=== PATIENT | male | born 1980 | race Caucasian/White ===

== ENCOUNTER 2024-03-01 08:22 | Day surgery (SDC) | payer BC ==
[2024-02-25 11:27] VITALS: BP 149/88
[~2024-03-01] VITALS: Ht 172.7 cm; Wt 87.3 kg
[~2024-03-01 08:22] MED LIST: IBLOOD GLUCOSE TEST STRIP 1 EA TEST VI PRN; IBUPROFEN400 MG PO; IBUPROFEN600 MG PO; LACTATED RINGER'S 1,000 ML IV SCH; LIDOCAINE HCL 1% 5 ML SDV INJ ONE; TESTOSTERO30 MG/1.5 TD; ZESTRIL10 MG PO
[2024-03-01] MEDS ORDERED: SEVOFLURANE 250 ML BTL INH ONE (08:30)
[2024-03-01 08:33] VITALS: BP 110/71
[2024-03-01] MEDS ORDERED: LIDOCAINE HCL 2% 5 ML SDV ONE (09:36)
[2024-03-01] MEDS ORDERED: ondansetron HCL 4 MG/2 ML VIAL ONE (09:36)
[2024-03-01] MEDS ORDERED: DEXAMETHASONE SOD PHOS 4 MG/ML VIAL ONE (09:36)
[2024-03-01] MEDS ORDERED: ACETAMINOPHEN 1,000 MG/100 ML VIAL ONE (09:36)
[2024-03-01] MEDS ORDERED: SUGAMMADEX SODIUM 200 MG/2 ML ML ONE (09:36)
[2024-03-01] MEDS ORDERED: ROCURONIUM BROMIDE 50 MG/5 ML SYR ONE (09:36)
[2024-03-01] MEDS ORDERED: propofoL 200 MG/20 ML VIAL ONE (09:36)
[2024-03-01] MEDS ORDERED: fentaNYL citrate 100 MCG/2 ML VIAL ONE ×2 (09:37→10:06)
[2024-03-01] MEDS ORDERED: MIDAZOLAM HCL 2 MG/2 ML VIAL ONE (09:37)
[2024-03-01] MEDS ORDERED: LABETALOL HCL 20 MG/4 ML VIAL ONE (10:24)
[2024-03-01] MEDS ORDERED: NALOXONE HCL 0.4 MG SYR IV PRN (10:30)
[2024-03-01] MEDS ORDERED: PROCHLORPERAZINE EDISYLATE 10 MG/2 ML VIAL IV PRN (10:30)
[2024-03-01] MEDS ORDERED: HYDROmorphone HCL 1 MG/ML SYR IV PRN (10:30)
[2024-03-01] MEDS ORDERED: ondansetron HCL 4 MG/2 ML VIAL IV PRN (10:30)
[2024-03-01] MEDS ORDERED: IBLOOD GLUCOSE TEST STRIP 1 EA TEST VI PRN (10:30)
[2024-03-01] MEDS ORDERED: droPERidol 5 MG/2 ML VIAL IV PRN (10:30)
[2024-03-01] MEDS ORDERED: MIDAZOLAM HCL 2 MG/2 ML VIAL IV PRN (10:30)
[2024-03-01] MEDS ORDERED: fentaNYL citrate 50 MCG/ML SDV IV PRN (10:30)
--- NOTE | 2024-03-01 11:24 | NUR ---
03/01/24 1124 Kinjal Shelby 1116-PATIENT ARRIVED TO PACU ON 6L MASK RR EVEN NONAROUSABLE RN DOING JAW THRUST TO MAINTAIN OPEN AIRWAY ORAL AIRWAY IN PLACE. PURPLE/RED DOWN TO PATIENTS NIPPLE LINE. FACE RED. SR HR 70'S 1122-PURPLE ON CHEST HAS GONE AWAY PATIENT DOES REMAIN RED TO SHOULDERS. IVF INFUSING. RN CONTINUING TO DO JAW THRUST ORAL AIRWAY IN PLACE.
[2024-03-01] MEDS ORDERED: ACETA/HYDROCODONE 325/7.5 15 ML BTL PO PRN (11:45)
[2024-03-01 12:08] VITALS: BP 159/109
--- NOTE | 2024-03-01 12:10 | NUR ---
IN PT ROOM FOR PAIN ASSESSMENT. PT REPORTS PAIN REMAINS AT 9/10 AFTER ORAL PAIN REGULATORY AFFAIRS ANALYST AND STATES THROAT IS VERY PAINFUL. POPSICLE PROVIDED TO PROVIDE PAIN RELIEF.
--- NOTE | 2024-03-01 12:13 | NUR ---
1210: PATIENT BACK IN DAY SURGERY ROOM FROM PACU. RATES PAIN 9/10. RESTLESS IN BED. VS CHECKED. IV SITE WNL. PATIENT DENIES FEELING BLEEDING/DRAINAGE IN BACK OF THROAT. SCDs ON. MEDICATED FOR PAIN WITH LORTAB ELIXIR. GIVEN APPLESAUCE TO EAT. CALL LIGHT WITHIN REACH.
--- NOTE | 2024-03-01 12:30 | NUR ---
PT STATES NO PAIN RELIEF FROM POPSICLE AT THIS TIME. ATTEMPTED TO CALL [facility] OFF[facility] X4 W/NO ANSWER. CONTACTED [facility] AT 1255 AND RECEIVED VERBAL ORDER FOR 5MG OF IV MORPHINE. PT UPDATED, CALL LIGHT WITHIN REACH. REMAINS IN ROOM W/PT AT THIS TIME.
--- NOTE | 2024-03-01 12:38 | OR ---
[facility] [address], [place] [address] Signed DATE OF OPERATION: 03/01/2024 SURGEON: Arnulfo Persaud MD PREOPERATIVE DIAGNOSES: 1. Obstructive sleep apnea with tonsillar hypertrophy. 2. Chronic tonsillitis. POSTOPERATIVE DIAGNOSES: 1. Obstructive sleep apnea with tonsillar hypertrophy. 2. Chronic tonsillitis. PROCEDURES: 1. Tonsillectomy. 2. Palatopharyngoplasty. ANESTHESIA: General orotracheal, INTERPRETATIVE DANCER, Silvano. PREOPERATIVE HISTORY: Mr. Anguiano is a 43-year-old male with obstructive sleep apnea, having some difficulty with CPAP. He has chronic tonsillitis, tonsil lithiasis. He is taken to the operating for the above-mentioned procedures. OPERATIVE PROCEDURE AND FINDINGS: After informed consent, the patient was taken to the operating room, placed in the supine position where general orotracheal anesthesia was induced. The patient and procedure were verified. The patient was repositioned. McIvor mouth gag placed into suspension. Headlight exam of the pharynx showed a long prominent soft palate and uvula. Tonsils were very retracted. cryptic. Left tonsil was grasped with a tenaculum, retracted medially and removed from its fossa with mucosal sparing incisions with Coblation. Same procedure on the right tonsil. Tonsils were sent to pathology. The palatopharyngoplasty was then performed. The length of excision was determined by palpation of the soft palate against the posterior pharyngeal wall. Basically, the palate incision extended from the superior tonsillar incisions across the midline portion. The posterior tonsillar pillar was excised, contiguous with the palatal excision. Coblation was used for the palate removal and it was sent to pathology along with the tonsils for gross examination. Hemostasis was obtained with Coblation. Field was dry after the procedure. Closure was with 4-0 interrupted Vicryl approximating posterior to anterior tonsillar pillar on the left, extending up to the palate Electronically Signed By: ARNULFO PERSAUD MD 03/01/24 1238 PATIENT NAME: BHARTI ANGUIANO OPERATIVE REPORT DATE OF : 82 REPORT #: [id number] PHYSICIAN: ARNULFO PERSAUD MD PCP: OLIVIA SANTOYO PA-C REPORT IS CONFIDENTIAL AND NOT TO BE RELEASED WITHOUT AUTHORIZATION [address] [address] Signed repositioning and closing posterior palatal mucosa with anterior palatal mucosa extending over to the midline on the right. An excellent cosmetic closure was obtained. Hemostasis was verified. The pharynx was suctioned clear of blood and secretions. Mouth gag was removed. The patient was awakened, extubated, transported to recovery room in good condition. No complications. BLOOD LOSS: Minimal. SPECIMEN: To pathology. DRAINS: No drains. Arnulfo Persaud MD /MODL /[id number] Copies: ~ Electronically Signed By: ARNULFO PERSAUD MD 03/01/24 1238 PATIENT NAME: ANGUIANOBHARTI SORIN OPERATIVE REPORT DATE OF : 82 REPORT #: [id number] PHYSICIAN: ARNULFO PERSAUD MD PCP: OLIVIA SANTOYO PA-C REPORT IS CONFIDENTIAL AND NOT TO BE RELEASED WITHOUT AUTHORIZATION
[2024-03-01] MEDS ORDERED: MORPHINE SULFATE 10 MG/ML VIAL IV ONE (13:00)
--- NOTE | 2024-03-01 13:10 | NUR ---
[facility] CALLED FOR VERBAL ORDER FOR "MAGIC MOUTHWASH", VERBAL ORDER RECEIVED. PHARMACY CALLED FOR MEDICATION.
[2024-03-01] MEDS ORDERED: MAALOX/DIPHENHYDRAMINE/LIDOCAINE 1:1:1 BY VOLUME SUSP PO ONE (13:15)
--- NOTE | 2024-03-01 13:15 | NUR ---
PT SLIGHTLY GARGLES MAGIC MOUTHWASH AND SWALLOWS WITHOUT DIFFICULTY. IV MORPHINE GIVEN (SEE EMAR). PT STATES PAIN HAS ALREADY IMPROVED TO 7/10 AT THIS TIME. CPOX IN PLACE, CALL LIGHT WITHIN REACH, PT SIGNIFICANT OTHER AT BEDSIDE. PT REPORTS NO FURTHER NEEDS OR QUESTIONS AT THIS TIME.
[2024-03-01 13:41] VITALS: BP 148/92
--- NOTE | 2024-03-01 13:45 | NUR ---
IN PT ROOM FOR PAIN ASSESSMENT. PT STATES PAIN HAS IMPROVED TO 5/10 AND STATES HE IS READY TO GO HOME AT THIS TIME D/T TOLERABLE LEVEL OF PAIN. PT GETTING DRESSED W/ ASSISTANCE. CALL LIGHT WITHIN REACH.
--- NOTE | 2024-03-01 13:50 | NUR ---
[facility] CALLED D/T PT REQUEST FOR HOME PRESCRIPTION FOR MAGIC MOUTHWASH TO ASSIST W/PAIN. [facility] SWAN[facility] STATES HE WILL CALL PT PHARMACY FOR PRESCRIPTION ORDER FOR THAT, OR SOMETHING SIMILAR. PT UPDATED AND AGREEABLE W/PLAN OF CARE.
--- NOTE | 2024-03-01 14:00 | NUR ---
IN PT ROOM FOR VS, ASSESSMENT, AND DC EDUCATION. PT AND PT SIGNIFICANT OTHER STATE VERBAL UNDERSTANDING TO DC EDUCATION AT THIS TIME AND NO OTHER QUESTIONS. IV DC'ED, WNL. PT OFF OF UNIT VIA WC TO PASSENGER SIDE OF VEHICLE. ALL BELONGINGS IN PT POSSESSION AT THIS TIME. PT AND PT SIGNIFICANT OTHER STATE NO FURTHER QUESTIONS OR NEEDS AT THIS TIME. FRESH ICE WATER PROVIDED.
[2024-03-02] MEDS ORDERED: Magic Mouth Wash PO (04:17)
--- NOTE | 2024-03-03 20:41 | PATH ---
[facility] [address] [place], [place] [address] Signed SPECIMEN(S): A TONSILS, UVULA, SOFT PALATE SPECIMEN SOURCE: A. TONSILS, UVULA, SOFT PALATE CLINICAL HISTORY: Chronic tonsillitis, sleep apnea, UP3 FINAL PATHOLOGIC DIAGNOSIS: Right and left tonsils, uvula, soft palate, bilateral tonsillectomy with uvula resection: - Right and left tonsils with chronic tonsillitis and reactive lymphoid hyperplasia. - Crypts of both tonsils contain focal acute inflammation. - Crypts of both tonsils contain colonies of microorganisms morphologically consistent with Actinomyces species. - Negative for atypia and malignancy. - Uvula with lamina propria edema and vascular congestion towards the tip. - Negative for inflammation, atypia, and malignancy. SDL MICROSCOPIC EXAMINATION: Histologic sections of all submitted blocks are examined by light microscopy. These findings, together with the gross examination, support the pathologic diagnosis. GROSS DESCRIPTION: The specimen, labeled and designated "Dale Anguiano, bilateral tonsils, uvula, soft palate," is received in formalin and consists of two palatine tonsils and triangular shaped fragment of pink-willoughby soft tissue consistent with the uvula. The first tonsil measures 3.8 x 2.2 x 1.3 cm (margin inked blue) and the second tonsil measures 3.7 x 2.1 x 1.4 cm. Both tonsils have a cerebriform outer surface and are sectioned to reveal pink-willoughby focally hemorrhagic crypts. No grossly identifiable lesions seen. The uvula measures 3.0 x 2.9 x 0.9 cm and the margin is inked green. The uvula is sectioned to reveal pink-willoughby fibrous to edematous cut surfaces. Bulldozer Press Operator sections are submitted. Cassette Summary: (A1) policy services representative sections of tonsils (A2) policy services representative section of the uvula PATIENT NAME: BHARTI ANGUIANO PATHOLOGY DATE OF : 82 REPORT #: [id number] PHYSICIAN: LARY EPPS PCP: OLIVIA SANTOYO PA-C REPORT IS CONFIDENTIAL AND NOT TO BE RELEASED WITHOUT AUTHORIZATION [facility] [address] [place] [id number] Signed JM (under the direct supervision of a pathologist) The Gross Description was prepared using a voice recognition system. The report was reviewed for accuracy; however, sound-alike word errors, addition and/or deletions may occur. If there are any questions about this report, please contact Client Services. ADDITIONAL NOTES: Immunohistochemical and/or in situ hybridization studies if performed in this case included appropriate positive controls that reacted as expected. This test was developed and its performance characteristics determined by [facility]. It has not been cleared or approved by the U.S. Food and Drug Administration. The FDA has determined that such clearance or approval is not necessary. This test is used for clinical purposes. It should not be regarded as investigational or for research. [facility] is certified under the Clinical Laboratory Improvement Amendments of 1988 (CLIA) as qualified to perform high complexity clinical laboratory testing. PERFORMING LABORATORY: Technical component was performed by [facility], [address] [place] [id number] (CLIA# [id number]). Professional interpretation was performed by [facility], [address] [place] [id number] (CLIA#: [id number]). Diagnostician: Kay Gonzáles MD Pathologist Electronically Signed 03/03/2024 Copies: ~ PATIENT NAME: BHARTI ANGUIANO PATHOLOGY DATE OF : 82 REPORT #: [id number] PHYSICIAN: LARY EPPS PCP: OLIVIA SANTOYO PA-C REPORT IS CONFIDENTIAL AND NOT TO BE RELEASED WITHOUT AUTHORIZATION
== END 2024-03-01 14:15 | disposition home or self-care (01) ==
LOC: DS 08:22
PROVIDERS: ATTEND Otolaryngology
PROC: 0CBP0ZZ Excision of Tonsils, Open Approach (ICD-10-PCS; principal; 2024-03-01 10:30)
PROC: 0CBPXZZ Excision of Tonsils, External Approach (ICD-10-PCS; 2024-03-01 10:30)
DX: J35.01 Chronic tonsillitis (principal); G47.33 Obstructive sleep apnea (adult) (pediatric); J35.8 Other chronic diseases of tonsils and adenoids
CPT/HCPCS: 00170; J0131; J1100; J2250; J2270; J2405; J2704; J3010; J3490; J7121

== ENCOUNTER 2024-03-01 22:30 | Emergency (ER) | payer BC ==
[~2024-03-01] VITALS: Ht 172.7 cm; Wt 87.0 kg
[~2024-03-01 22:30] MED LIST changes: -IBLOOD GLUCOSE TEST STRIP 1 EA TEST VI PRN; -LACTATED RINGER'S 1,000 ML IV SCH; -LIDOCAINE HCL 1% 5 ML SDV INJ ONE
[2024-03-01] MEDS ORDERED: TRANEXAMIC ACID 1,000 MG/10 ML AMP NEB ONE (23:30)
[2024-03-01] MEDS ORDERED: LACTATED RINGER'S 1,000 ML IV ONE (23:30)
[2024-03-01 23:32] LABS: HEMATOCRIT 46.8 % (35.0-50.0); HEMOGLOBIN 15.3 g/dL (12.0-18.0); MCH 32.2 (27-36); MCHC 32.6 g/dl (30-36); MCV 98.7 fl (81-99); PLATELET COUNT 328 K/uL (140-440); RBC 4.73 M/ul (4.3-5.7); RDW 14.1 (10.5-15.0)
[2024-03-01 23:43] LABS: INR 1.04 (0.80-1.30); PROTIME 13.2 Sec (11.2-14.2)
[2024-03-01 23:45] LABS: PARTIAL THROMBOPLASTIN TIME 24.6 Sec (22.9-41.3)
[2024-03-01 23:46] LABS: BANDS, MANUAL DIFF 3; LYMPHOCYTES, MANUAL DIFF 10; MONOCYTES, MANUAL DIFF 5; NEUTROPHILS, MANUAL DIFF 82
[2024-03-01 23:47] LABS: ALBUMIN 3.8 g/dL (3.4-5.0); ALBUMIN/GLOBULIN RATIO 1.23 (1.1-2.4); ANION GAP 14.1 (7-21); BILIRUBIN, TOTAL 0.6 ng/dL (0.2-1.0); BUN/CREATININE RATIO 23.42 (6.0-28.6); CREATININE, SERUM 1.11 mg/dL (0.70-1.30); POTASSIUM 5.1 mmol/L (3.5-5.1); PROTEIN, TOTAL 6.9 g/dL (6.4-8.2)
[2024-03-02 00:08] LABS: ABO O; ANTIBODY SCREEN NEGATIVE; RH POSITIVE
[2024-03-02] MEDS ORDERED: TRANEXAMIC ACID IN NACL,ISO-OS 1,000 MG/100 ML PIGGYBACK IV ONE (00:15)
[2024-03-02] MEDS ORDERED: TRANEXAMIC ACID 1,000 MG/10 ML AMP NEB ONE (00:15)
[2024-03-02] MEDS ORDERED: ondansetron HCL 4 MG/2 ML VIAL IV ONE (00:30)
[2024-03-02] MEDS ORDERED: FAMOTIDINE 20 MG/ 2 ML VIAL IV ONE (00:30)
[2024-03-02 00:40] LABS: HEMOGLOBIN 13.1 g/dL (12.0-18.0)
[2024-03-02 00:41] LABS: HEMATOCRIT 39.2 % (35.0-50.0)
[2024-03-02] MEDS ORDERED: droPERidol 5 MG/2 ML VIAL IV ONE (01:45)
[2024-03-02] MEDS ORDERED: PANTOPRAZOLE SODIUM 40 MG/10 ML VIAL IV ONE (02:15)
[2024-03-02 02:40] LABS: HEMATOCRIT 37.2 % (35.0-50.0); HEMOGLOBIN 12.2 g/dL (12.0-18.0)
[2024-03-02 02:59] LABS: LACTIC ACID, BLOOD 2.2 mmol/L (0.4-2.0)
[2024-03-02] MEDS ORDERED: CEFTRIAXONE/SODIUM CHLORIDE 2 GM/100 ML PIGGYBACK IV ONE (03:15)
[2024-03-02] MEDS ORDERED: LACTATED RINGER'S 1,000 ML IV ONE (03:15)
[2024-03-02 03:25] LABS: BILIRUBIN, URINE NEGATIVE (negative); BLOOD/HGB, URINE NEGATIVE (Negative); KETONE, URINE TRACE (Negative); LEUK ESTERASE, URINE NEGATIVE (negative); NITRITE, URINE NEGATIVE (negative); PH, URINE 6.5 (5-7)
[2024-03-02] MEDS ORDERED: ONDANSETRON 4 MG HOME.PACK SL ONE (04:00)
[2024-03-02] MEDS ORDERED: Magic Mouth Wash PO ×2 (04:17→04:18)
[2024-03-02 04:43] VITALS: BP 158/93
--- NOTE | 2024-03-03 21:39 | EKG ---
[facility] [address] [facility] [place] [address] Signed Normal sinus rhythm Nonspecific T wave abnormality Abnormal ECG When compared with ECG of 25-FEB-2024 11:36, No significant change was found Confirmed by Raad Montague MD ([id number]) on 03/03/2024 9:39:28 PM Electronically Signed By: RAAD MONTAGUE DO 03/03/24 2139 PATIENT NAME: GRUBERBHARTI LUND Electrocardiogram DATE OF : 82 PHYSICIAN: RAAD MONTAGUE DO REPORT #: [id number] REPORT IS CONFIDENTIAL AND NOT TO BE RELEASED WITHOUT AUTHORIZATION
== END 2024-03-02 04:35 | disposition home or self-care (01) ==
LOC: ED 22:30
PROVIDERS: Internal Medicine
DX: K91.840 Postprocedural hemorrhage of a digestive system organ or structure following a digestive system procedure (principal); I10 Essential (primary) hypertension; Z87.891 Personal history of nicotine dependence; Z79.899 Other long term (current) drug therapy; Z79.890 Hormone replacement therapy
CPT/HCPCS: 36415; 71045; 74177; 80053; 81003; 83605; 83690; 85014; 85018; 85025; 85610; 85730; 86850; 86900; 86901; 87040; 93005; 93010; 96361; 96375; 99284-25; A9270; J0696; J1790; J2405; J2470; J7121; Q9967

== ENCOUNTER 2025-01-26 05:50 | Day surgery (SDC) | payer BC ==
[~2025-01-26] VITALS: Ht 172.7 cm; Wt 87.0 kg
[~2025-01-26 05:50] MED LIST changes: +FISH OIL 500 M1 EAC4 PO; +L-THEANINE200 MG PO; +LACTATED RINGER'S 1,000 ML IV SCH; +Magic Mouth Wash PO
[2025-01-26 06:04] VITALS: BP 140/83
[2025-01-26] MEDS ORDERED: IBLOOD GLUCOSE TEST STRIP 1 EA TEST VI PRN (07:00)
[2025-01-26] MEDS ORDERED: LIDOCAINE HCL 1% 5 ML SDV INJ ONE (07:00)
[2025-01-26] MEDS ORDERED: fentaNYL citrate 100 MCG/2 ML VIAL ONE (07:23)
[2025-01-26] MEDS ORDERED: LIDOCAINE HCL 2% 5 ML SDV ONE (07:23)
[2025-01-26] MEDS ORDERED: MIDAZOLAM HCL 2 MG/2 ML VIAL ONE (07:23)
[2025-01-26] MEDS ORDERED: DEXAMETHASONE SOD PHOS 4 MG/ML VIAL ONE (07:23)
[2025-01-26] MEDS ORDERED: CEFAZOLIN SODIUM 2 GM in SODIUM CHLORIDE 0.9% 100 ML IV SCH (07:25)
[2025-01-26] MEDS ORDERED: SUGAMMADEX SODIUM 200 MG/2 ML ML ONE (08:14)
[2025-01-26] MEDS ORDERED: ROCURONIUM BROMIDE 50 MG/5 ML SYR ONE (08:16)
[2025-01-26] MEDS ORDERED: ACETAMINOPHEN 1,000 MG/100 ML VIAL IV ONE (08:30)
--- NOTE | 2025-01-26 08:34 | NUR ---
01/26/25 0834 Garfield,Marisabel 1600 PT ARRIVED TO PACU ON 6L VIA MASK, RESP EVEN AND UNLABORED WITH ORAL AIRWAY AND 6L VIA MASK IN PLACE. VSS.
[2025-01-26] MEDS ORDERED: NALOXONE HCL 0.4 MG SYR IV PRN (09:00)
[2025-01-26] MEDS ORDERED: HYDROmorphone HCL 1 MG/ML SYR IV PRN (09:00)
[2025-01-26] MEDS ORDERED: fentaNYL citrate 50 MCG/ML SDV IV PRN (09:00)
[2025-01-26] MEDS ORDERED: MEPERIDINE HCL 25 MG/1 ML VIAL IV PRN (09:00)
[2025-01-26 09:08] VITALS: BP 141/99
[2025-01-26] MEDS ORDERED: HYDROCODONE/ACETA 7.5/325 TAB PO ONE (09:30)
--- NOTE | 2025-01-26 09:55 | NUR ---
0900- PT RECIEVED FROM PACU. REPORT RECIEVED AND OP SITE OBSERVED TOGETHER. NO PAIN OR N/V NOTED, VITALS AND OP SITE NOTED. PT REQUESTING FOOD AND WATER. TOLLERATED INTAKE WELL. 0910- PT REPORTS PAIN 11/24. VERBAL ORDERS TO BE PLACED PER DR SIMS REQUEST. 0940- MEDS GIVEN PER EMAR. 0950- BROTH GIVEN TO PT PER REQUEST. URINAL PROVIDED, PT EDUCATION ABOUT WALKING TO BATHROOM AND MEASURING OUTPUT PROVIDED. PT VERBALIZED UNDERSTANDING.
[2025-01-26 10:10] VITALS: BP 137/91
--- NOTE | 2025-01-26 10:17 | NUR ---
0955- PT GUIDED TO RESTROOM TO VOID. PT VOID AMOUNT NOTED. 1000- HOURLY ROUNDING DONE, VITALS, PAIN, AND OP SITE NOTED. NO COMPLAINT OF N/V. PAIN IMPROVED TO 3/10.
--- NOTE | 2025-01-26 10:58 | NUR ---
0945- PT EDUCATION PROVIDED, PT VERBALIZED UNDERSTANDING. PT ABLE TO DRESS SELF AND TRANSFER TO WHEELCHAIR WITHOUT ASSISTANCE OR ISSUE. 1051- PT EXITED HOSPITAL VIA WHEELCHAIR. TRANSFERRED TO PRIVATE AUTO WITHOUT ASSISTANCE OR ISSUE.
[2025-01-26] MEDS ORDERED: SEVOFLURANE 250 ML BTL INH ONE (12:51)
--- NOTE | 2025-01-27 08:47 | OR ---
[facility] [address], [place] [address] Signed DATE OF OPERATION: 01/26/2025 SURGEON: Hernan Sims DO PREOPERATIVE DIAGNOSIS: Incarcerated ventral hernia. POSTOPERATIVE DIAGNOSIS: Incarcerated ventral hernia. PROCEDURE PERFORMED: Repair of incarcerated ventral hernia. ANESTHESIA: General. ESTIMATED BLOOD LOSS: Minimal. DRAINS: None. COMPLICATIONS: None. DESCRIPTION OF PROCEDURE: The patient was brought to the operating room and placed in the supine position. After induction of general anesthesia, the abdomen was then sterilely shaved, prepped, and draped in the usual fashion. Utilizing a curvilinear incision in the subumbilical region, skin was incised with a scalpel. Dissection continued down through the layers of the subcutaneous tissue. Bleeding points were controlled with electrocautery. Anterior fascia was identified, and then in the supraumbilical region, the fascial defect was noted. The umbilicus was then raised off the fascia utilizing blunt and sharp technique and Bovie cautery. The umbilicus was then fully mobilized. The incarcerated contents were then mobilized from the subcutaneous tissue and the incarcerated contents were then transected at the base towards the fascial defect, passed off the field. The fascial margins were then further freshened down, incarcerated contents were placed intra-abdominally, and the decision to close the defect was then made utilizing 0 PDS in a [id number] fashion. Multiple sutures from apex to apex of the incarcerated ventral hernia were then carried down and Electronically Signed By: HERNAN SIMS DO 01/27/25 0847 PATIENT NAME: BHARTI GRUBER OPERATIVE REPORT DATE OF : 82 REPORT #: [id number] PHYSICIAN: HERNAN SIMS DO PCP: OLIVIA SANTOYO PA-C REPORT IS CONFIDENTIAL AND NOT TO BE RELEASED WITHOUT AUTHORIZATION [facility] [address], [place] [address] Signed satisfactory closure of the defect was noted in this way. The umbilicus was then tacked back down with 2-0 Vicryl to the anterior fascia. Subcutaneous tissue was thoroughly irrigated and dried. No other bleeding sites were apparent. The gaps of the umbilicus were then closed with 2-0 Vicryl, subcutaneous tissue was closed with 3-0 Vicryl and the skin was closed with 4-0 Monocryl and Dermabond dressing was applied. The patient tolerated the procedure well and to recovery room in satisfactory condition. Hernan Sims DO RS/MODL /[id number] Copies: ~ Electronically Signed By: HERNAN SISM DO 01/27/25 0847 PATIENT NAME: BHARTI GRUBER OPERATIVE REPORT DATE OF : 82 REPORT #: [id number] PHYSICIAN: HERNAN SIMS DO PCP: OLIVIA SANTOYO PA-C REPORT IS CONFIDENTIAL AND NOT TO BE RELEASED WITHOUT AUTHORIZATION
== END 2025-01-26 10:51 | disposition home or self-care (01) ==
LOC: DS 05:50
PROVIDERS: ATTEND Surgery
PROC: 0WQF0ZZ Repair Abdominal Wall, Open Approach (ICD-10-PCS; principal; 2025-01-26 07:30)
DX: K43.6 Other and unspecified ventral hernia with obstruction, without gangrene (principal); Z79.899 Other long term (current) drug therapy; Z87.891 Personal history of nicotine dependence
CPT/HCPCS: 00750; A9270; J0688; J1100; J2003; J2250; J2405; J2704; J3010; J3490; J7121